=== PATIENT | male | born 1990 | race Caucasian/White ===

== ENCOUNTER 2018-04-05 16:15 | Emergency (ER) | payer OTHER ==
[2018-04-05] MEDS: KETOROLAC 60 MG INJ IM (16:54)
== END 2018-04-05 19:07 | disposition home or self-care (01) ==
LOC: FTE 16:15
DX: M25.561 Pain in right knee (principal)
CPT/HCPCS: 73562; 96372; 99284-25

== ENCOUNTER 2018-08-23 16:42 | Emergency (ER) | payer SELFPAY, OTHER | END 2018-08-23 20:25 | disposition left against medical advice (07) | LOC: FTE 16:42 | DX: Z53.21 Procedure and treatment not carried out due to patient leaving prior to being seen by health care provider (principal) ==